=== PATIENT | female | born 1960 | race Caucasian/White ===

== ENCOUNTER 2018-02-21 11:17 | Emergency (ER) | payer OTHER ==
[~2018-02-21 11:17] MED LIST: AMIT-108 PO; AMO500 PO; CEPH-312 PO; HYDR473S4 PO; ITR100 GT; LEVO750T25 PO; MORS60 PO; MS IR; ONDA4TAB PO; OXYGEN INH; TRA50 PO
--- NOTE | 2018-02-21 11:18 | ER Report ---
History and Physical Time Seen By MD: 11:18 HPI/ROS CHIEF COMPLAINT: "Cold, possible pneumonia" HISTORY OF PRESENT ILLNESS: Patient is a 58-year-old female was had 1 month's worth of congestion and cough that is occasionally productive of green sputum. She was seen and treated by her primary care physician, Dr. Nolasco at the beginning of the month with a course of Levaquin with some improvement. Over the past 2 weeks she has had increasing cough with productive sputum. Reports nasal congestion with postnasal drip and some sinus pressure. She has been having subjective fevers but no chills. She denies any chest pain. She has had a cough that is worse at nighttime. It's that she has tried albuterol nebulizers and inhalers in the past but it makes her "jittery" so she prefers Xopenex. REVIEW OF SYSTEMS: Constitutional: Subjective fevers without chills Eyes: No discharge. ENT: Postnasal drip Cardiovascular: No chest pain, no palpitations. Respiratory: Cough productive of green sputum Gastrointestinal: No abdominal pain, no vomiting. Genitourinary: No hematuria. Musculoskeletal: No back pain. Skin: No rashes. Neurological: No headache. Allergies: Coded Allergies: Sulfa (Sulfonamide Antibiotics) (Verified Allergy, Mild, HIVES, 02/21/18) metaxalone (Verified Allergy, Mild, 02/21/18) Uncoded Allergies: STEROIDS (Allergy, Mild, AGITATION, 07/03/09) Home Meds Active Scripts Amoxicillin/Pot Clav 875-125 Mg Tab (AUGMENTIN 875-125 TABLET) 1 Each Tablet, 1 TAB PO Q12H for 7 Days, #14 TAB 0 Refills Prov:ROBEL SANCHEZ MD 02/21/18 Reported Medications Morphine Sulfate (MORPHINE SULFATE) 30 Mg Tablet, TID 02/21/18 Levothyroxine Sodium (LEVOTHYROXINE SODIUM) 75 Mcg Tablet, 75 MCG PO QDAY, TAB 02/21/18 Morphine Sulfate (Ms Contin) 60 Mg Tabsr, 60 MG PO Q12H, 0 Refills 07/03/09 Discontinued Reported Medications Itraconazole (SPORANOX (OR EQUIV)) 100 Mg Cap, 100 MG GT 02/15/12 Cephalexin (CEPHALEXIN) 500 Mg Capsule, 500 MG PO 02/15/12 Oxygen (Oxygen) 2 L Inha, 2 L INH PRN, 0 Refills 07/03/09 Amitriptyline Hcl (Elavil) 50 Mg Tablet, 50 MG PO QHS, 0 Refills 07/03/09 [Ms Ir] No Conflict Check, 0 Refills 07/03/09 Tramadol Hcl (Ultram) 50 Mg Tab, 50 MG PO Q4-6H, 0 Refills 07/03/09 Past Medical/Surgical History Chronic pelvic and left leg pain Hx Smoking: No Hx Substance Use Disorder: No Hx Alcohol Use: No Constitutional Vital Sign - Last 24 Hours 02/21/18 02/21/18 02/21/18 02/21/18 11:21 11:25 11:25 11:30 Temp 98.0 Pulse 79 Resp 16 B/P (MAP) 176/91 (119) 176/91 153/86 (108) Pulse Ox 85 O2 Delivery Room Air O2 Flow Rate 1.0 02/21/18 02/21/18 02/21/18 02/21/18 11:32 11:45 11:45 11:47 Pulse 77 76 77 Resp 18 Pulse Ox 99 98 100 O2 Delivery Nasal Cannula O2 Flow Rate 1.0 02/21/18 02/21/18 02/21/18 02/21/18 11:52 12:00 12:22 12:30 Pulse 77 75 Resp 18 B/P (MAP) 129/63 (85) 122/97 (105) Pulse Ox 100 98 02/21/18 02/21/18 02/21/18 02/21/18 12:37 12:42 12:45 12:45 Pulse 72 77 72 Resp 20 32 18 Pulse Ox 92 93 94 O2 Delivery Nasal Cannula O2 Flow Rate 1.0 02/21/18 02/21/18 02/21/18 02/21/18 12:47 12:52 12:57 13:00 Pulse 71 ??? 77 Resp 13 27 20 B/P (MAP) 123/64 (83) Pulse Ox 100 93 02/21/18 13:02 Pulse 79 Resp 20 Pulse Ox 94 O2 Delivery Room Air O2 Flow Rate 0 Physical Exam General Appearance: The patient is alert, has no immediate need for airway protection and no signs of toxicity. ENT, Mouth: Mucous membranes are moist. Respiratory: There are no retractions, l scattered wheeze and rhonchi with cough. Cardiovascular: Regular rate and rhythm. Gastrointestinal: Abdomen is soft and non tender, no masses, bowel sounds normal. Neurological: Awake and alert Skin: Warm and dry, no rashes. Musculoskeletal: Neck is supple non tender. Extremities are nontender, nonswollen and have full range of motion. Medical Decision Making EKG/Imaging Imaging FACILITY: [facility] - [place] PATIENT NAME: Sumi Layne : 1960 MR: [id number] V: [id number] EXAM DATE: ORDERING PHYSICIAN: ROBEL SANCHEZ TECHNOLOGIST: Location: Patient: Sumi Layne : 1960 Visit/Account:[id number] Date of Sevice: 02/21/2018 Examination: CHEST PA AND LAT Comparison: 09/07/2017 History: Respiratory distress. Findings: Cardiac and hilar contour size is within normal limits. No consolidation, nodule, or peribronchial inflammation. No pneumothorax, edema, or effusion. Moderate amount of stool in the visualized colon. No acute osseous abnormality. IMPRESSION: No findings of acute cardiopulmonary disease. Report Dictated By: Donaldo Napoles MD at 02/21/2018 12:34 PM Report E-Signed By: Donaldo Napoles MD at 02/21/2018 12:35 PM WSN:[id number] ED Course/Re-evaluation ED Course 02/21/2018 11:41:09 am room air oxygen sat 85%. He responded quite nicely to oxygen. Exam consistent with bronchospasm also with postnasal drip consider sinusitis is the source of the patient's irritation cough. We'll obtain chest x- ray. We'll give Xopenex nebulizer treatment and 60 mg of oral steroids. Re-evaluation 02/21/2018 12:33:05 pm patient feels subjectively improved after 1st Xopenex breathing treatment. We'll repeat at this time. Decision to Disposition Date: February 21, 2018 Decision to Disposition Time: 13:15 Depart Departure Latest Vital Signs Vital Signs Date Time Temp Pulse Resp B/P (MAP) Pulse Ox O2 Delivery O2 Flow Rate FiO2 02/21/18 13:02 79 20 94 Room Air 0 02/21/18 13:00 123/64 (83) 02/21/18 11:25 98.0 Impression: Primary Impression: Acute rhinosinusitis Condition: Improved Disposition: HOME OR SELF-CARE Referrals: ALIYA NOLASCO DO (PCP) 2 Days if symptoms persist New Scripts Amoxicillin/Pot Clav 875-125 Mg Tab (AUGMENTIN 875-125 TABLET) 1 Each Tablet 1 TAB PO Q12H for 7 Days, #14 TAB 0 Refills Prov: ROBEL SANCHEZ MD 02/21/18 Patient Instructions: Bronchospasm (ED), Rhinosinusitis (ED) Additional Instructions: Xopenex inhaler: 1-2 puffs every 8 hours as needed for cough and shortness of breath. Flonase: 1 puff each nostril once per day ROBEL SANCHEZ MD February 21, 2018 11:18
[2018-02-21] MEDS ORDERED: MORP-18 (11:25)
[2018-02-21] MEDS ORDERED: LEVO75TA73 PO (11:25)
[2018-02-21] MEDS ORDERED: predniSONE 20 MG TAB PO ONE (11:40)
[2018-02-21] MEDS ORDERED: LEVALBUTEROL 1.25 MG/3 ML NEB NEB ONE ×2 (11:40→12:35)
[2018-02-21] MEDS ORDERED: FLUTICASONE PROP 0.05% 16 GM ONE (11:45)
[2018-02-21] MEDS ORDERED: LEVALBUTEROL 15 GM INH INH ONE (12:35)
--- NOTE | 2018-02-21 12:39 | RADIOLOGY IMAGING REPORT ---
[place] [facility] [place] Sumi Layne : 1960 MR: [id number] V: [id number] EXAM DATE: ORDERING PHYSICIAN: ROBEL SANCHEZ TECHNOLOGIST: Location: [facility] [place] Patient: Sumi Layne : 1960 Visit/Account:[id number] Date of Sevice: 02/21/2018 Examination: CHEST PA AND LAT Comparison: 09/07/2017 History: Respiratory distress. Findings: Cardiac and hilar contour size is within normal limits. No consolidation, nodule, or peribr onchial inflammation. No pneumothorax, edema, or effusion. Moderate amount of stool in the visualized colon. No acute osseous abnormality. IMPRESSION: No findings of acute cardiopulmonary disease. Report Dictated By: Donaldo Napoles MD at 02/21/2018 12:34 PM Report E-Signed By: Donaldo Napoles MD at 02/21/2018 12:35 PM WSN:[id number]
[2018-02-21] MEDS ORDERED: AMOX-559 PO (12:45)
[2018-02-21 13:00] VITALS: BP 123/64
== END 2018-02-21 13:07 | disposition home or self-care (01) ==
LOC: ER 11:22
DX: J01.90 Acute sinusitis, unspecified (principal)
CPT/HCPCS: 71046; 94640; 99284

== ENCOUNTER → 2018-04-28 | Outpatient (CLI) | payer OTHER ==
[~2018-04-28] MED LIST changes: +AMOX-559 PO; +LEVO75TA73 PO; +MORP-18
== END ==
LOC: LAB 13:58
PROVIDERS: ATTEND Nurse Practitioner
DX: B00.89 Other herpesviral infection (principal)
CPT/HCPCS: 88305

== ENCOUNTER → 2018-05-18 | Outpatient (CLI) | payer OTHER | LOC: RESP 03:22 | PROVIDERS: ATTEND Family Medicine | DX: J98.4 Other disorders of lung (principal) | CPT/HCPCS: 94060; 94726; 94729 ==

== ENCOUNTER → 2019-01-16 | Outpatient (CLI) | payer OTHER ==
[2019-01-16 09:33] LABS: LDL CHOLESTEROL 72 mg/dl
== END ==
LOC: LAB 07:33
PROVIDERS: ATTEND Family Medicine
DX: Z13.9 Encounter for screening, unspecified (principal)
CPT/HCPCS: 36415; 82040; 82247; 82310; 82374; 82435; 82465; 82565; 82947; 83718; 84075; 84132; 84155; 84295; 84443; 84450; 84460; 84478; 84520; 85027

== ENCOUNTER → 2019-02-09 | Outpatient (CLI) | payer OTHER ==
[2019-02-09 12:20] LABS: PLATELET COUNT, AUTOMATED 240 K/uL (150-450)
== END ==
LOC: LAB 11:38
PROVIDERS: ATTEND Family Medicine
DX: M79.672 Pain in left foot (principal); R22.42 Localized swelling, mass and lump, left lower limb
CPT/HCPCS: 36415; 85025; 85651; 86038; 86140; 86200; 86430

== ENCOUNTER → 2019-03-06 | Outpatient (CLI) | payer OTHER ==
--- NOTE | 2019-03-08 08:20 | RADIOLOGY IMAGING REPORT ---
FACILITY: [facility] - [place] PATIENT NAME: ORLANDO JON : [id number] MR: [id number] V: [id number] EXAM DATE: [id number] ORDERING PHYSICIAN: ALIYA FOX TECHNOLOGIST: Erendira Forde PROCEDURE: BILATERAL DIGITAL SCREENING MAMMOGRAM WITH CAD ASSISTED INTERPRETATION & 3D TOMOSYNTHESIS REASON FOR STUDY: Screening FAMILY HISTORY OF BREAST CANCER: Paternal Grandmother & Paternal Aunt BREAST PROCEDURES/TREATMENTS: Benign surgical biopsy of the Right breast. COMPARISON: 05/10/15 VIEWS OBTAINED: Bilateral 2D & 3D full field CC & MLO projections BREAST DENSITY: The breasts are heterogeneously dense which can obscure small masses. MAMMOGRAM FINDINGS: The parenchymal pattern has remained stable allowing for difference in mammographic technique & patient positioning. IMPRESSION: BIRADS 1: Negative. DIAGNOSTIC CATEGORY 1--NEGATIVE. RECOMMENDATIONS: ROUTINE MAMMOGRAM AND CLINICAL EVALUATION. Dictated by: Nancy Callaway M.D. on 03/06/2019 at 18:15 Transcribed by: MATILDE on 03/07/2019 at 7:29 Approved by: Nancy Callaway M.D. on 03/08/2019 at 8:19 [facility]
== END ==
LOC: MAMO 00:43
PROVIDERS: ATTEND Family Medicine
DX: Z12.31 Encounter for screening mammogram for malignant neoplasm of breast (principal); Z80.3 Family history of malignant neoplasm of breast
CPT/HCPCS: 77063; 77067